=== PATIENT | female | born 1975 | race Caucasian/White ===

== ENCOUNTER 2020-08-10 18:32 | Inpatient (IN) | payer OTHER ==
[~2020-08-10] VITALS: Ht 154.9 cm; Wt 100.9 kg
[~2020-08-10 18:32] MED LIST: GLIP5 PO; INSULANPEN SC; LORA2 PO; METF500 PO
[2020-08-10 19:09] LABS: BASOPHILS PERCENT AUTO 1 % (0-2); EOSINOPHILS ABSOLUTE AUTO 0.11 K/mm3 (0.00-0.68); EOSINOPHILS PERCENT AUTO 1 % (0-6); Hematocrit 42.8 % (33.0-51.0); IMMATURE GRAN ABSOLUTE AUTO 0.03 K/mm3 (0.00-0.10); IMMATURE GRAN PERCENT AUTO 0 % (0-1); LYMPHOCYTES PERCENT AUTO 25 % (21-46); MONOCYTES ABSOLUTE AUTO 0.65 K/mm3 (0.16-1.47); MONOCYTES PERCENT AUTO 5 % (4-13); Mean Corpuscular HGB 25.3 pg (26.0-34.0); Mean Corpuscular HGB Conc 32.7 g/dL (31.5-36.5); Mean Corpuscular Volume 77 fL (80-100); Mean Platelet Volume 9.2 fL (9.1-12.4); NEUTROPHILS ABSOLUTE AUTO 8.19 K/mm3 (1.96-9.15); NEUTROPHILS PERCENT AUTO 68 % (41-73); Platelet Count 308 K/mm3 (150-400); RDW Coefficient Variation 12.9 % (11.7-14.2); RDW Standard Deviation 35.9 fL (35.1-46.3); Red Blood Cell Count 5.54 M/mm3 (3.80-5.20); White Blood Cell Count 12.08 K/mm3 (4.00-11.30)
[2020-08-10 19:27] LABS: Alanine Aminotransfer (ALT/SGP 29 U/L (12-78); Albumin, Blood 3.3 g/dL (3.4-5.0); Albumin/Globulin Ratio 0.8 (0.8-1.8); Alk Phos 111 U/L (50-136); Anion Gap 6 mmol/L (6-16); Aspartate Aminotrans (AST/SGOT 20 U/L (12-37); Bilirubin, Total 0.4 mg/dL (0.1-1.0); Blood Urea Nitrogen 7 mg/dL (8-24); Bun/Creatinine Ratio 14.3 (12.0-20.0); CO2, Blood 26 mmol/L (21-32); Calcium, Blood 8.6 mg/dL (8.5-10.1); Chloride, Blood 103 mmol/L (98-108); Creatinine, Blood 0.49 mg/dL (0.40-1.00); Globulin, Blood 4.2 g/dL (2.2-4.0); Glomerular Filtration Rate >60 (60-); Glucose, Blood 185 mg/dL (70-99); Potassium, Blood 3.7 mmol/L (3.5-5.5); Sodium, Blood 135 mmol/L (136-145); Total Protein, Blood 7.5 g/dL (6.4-8.2)
[2020-08-10] MEDS ORDERED: BASAGLAR K100 UNIT/1 SC (20:46)
[2020-08-10] MEDS ORDERED: FURO20 PO (20:47)
[2020-08-10] MEDS ORDERED: LOSARTAN POTASS50 M1 PO (20:47)
[2020-08-10] MEDS ORDERED: METF500 PO (20:48)
[2020-08-10] MEDS ORDERED: ADD MEDICATION (20:49)
[2020-08-10] MEDS ORDERED: K-TAB ER8 MEQ PO (23:07)
[2020-08-10] MEDS ORDERED: AMPDEX5 PO (23:32)
[2020-08-10] MEDS ORDERED: CLON.1 PO (23:33)
[2020-08-10] MEDS ORDERED: AMOX-CLAV 875-1 EAC5 PO (23:34)
[2020-08-10] MEDS ORDERED: ALBU8HFA2 INH (23:35)
--- NOTE | 2020-08-11 04:14 | NUR ---
SHIFT SUMMARY PT ER ADMIT THIS SHIFT FOR CVA. PT HAS RIGHT VISUAL DEFICIT AND CAN NOT SEE OUT OF HER PERIPHERAL. NO OTHER NEURO DEFICITS NOTED, PT BP HAS BEEN STABLE. 1 PA TO THE BATHOOM. ADMISSION COMPLETE. BED IN LOWEST POSITION, CALL LIGHT WITHIN REACH.
[2020-08-11 06:06] LABS: BASOPHILS ABSOLUTE AUTO 0.08 K/mm3 (0.00-0.23); BASOPHILS PERCENT AUTO 1 % (0-2); EOSINOPHILS ABSOLUTE AUTO 0.04 K/mm3 (0.00-0.68); EOSINOPHILS PERCENT AUTO 0 % (0-6); Hemoglobin 13.7 g/dL (11.5-16.0); IMMATURE GRAN ABSOLUTE AUTO 0.04 K/mm3 (0.00-0.10); IMMATURE GRAN PERCENT AUTO 0 % (0-1); LYMPHOCYTES ABSOLUTE AUTO 2.38 K/mm3 (0.84-5.20); LYMPHOCYTES PERCENT AUTO 19 % (21-46); MONOCYTES ABSOLUTE AUTO 0.49 K/mm3 (0.16-1.47); MONOCYTES PERCENT AUTO 4 % (4-13); Mean Corpuscular HGB 26.1 pg (26.0-34.0); Mean Corpuscular HGB Conc 33.4 g/dL (31.5-36.5); Mean Corpuscular Volume 78 fL (80-100); Mean Platelet Volume 9.2 fL (9.1-12.4); NEUTROPHILS ABSOLUTE AUTO 9.54 K/mm3 (1.96-9.15); NEUTROPHILS PERCENT AUTO 76 % (41-73); Platelet Count 278 K/mm3 (150-400); RDW Standard Deviation 36.4 fL (35.1-46.3); Red Blood Cell Count 5.24 M/mm3 (3.80-5.20); White Blood Cell Count 12.57 K/mm3 (4.00-11.30)
[2020-08-11 06:24] LABS: Alanine Aminotransfer (ALT/SGP 26 U/L (12-78); Albumin, Blood 2.9 g/dL (3.4-5.0); Albumin/Globulin Ratio 0.8 (0.8-1.8); Alk Phos 92 U/L (50-136); Anion Gap 5 mmol/L (6-16); Aspartate Aminotrans (AST/SGOT 17 U/L (12-37); Bilirubin, Total 0.5 mg/dL (0.1-1.0); Blood Urea Nitrogen 5 mg/dL (8-24); Bun/Creatinine Ratio 11.1 (12.0-20.0); CO2, Blood 27 mmol/L (21-32); Calcium, Blood 8.1 mg/dL (8.5-10.1); Chloride, Blood 102 mmol/L (98-108); Creatinine, Blood 0.45 mg/dL (0.40-1.00); Globulin, Blood 3.8 g/dL (2.2-4.0); Glomerular Filtration Rate >60 (60-); Glucose, Blood 220 mg/dL (70-99); Potassium, Blood 3.7 mmol/L (3.5-5.5); Sodium, Blood 134 mmol/L (136-145); Total Protein, Blood 6.7 g/dL (6.4-8.2)
[2020-08-11 14:14] LABS: Source, Urine Clean Catch
[2020-08-11 14:16] LABS: Appearance, Urine Clear (Clear); Bilirubin, Urine Neg (Neg); Blood, Urine Neg (Neg); Color, Urine Yellow (P-Yellow); Glucose Qualitative, Urine 4+ (Neg); Ketones, Urine 2+ (Neg); Leukocyte Esterase, Urine Neg (Neg); Nitrite, Urine Neg (Neg); Protein, Urine Neg (Neg); Specific Gravity, Urine 1.005 (1.003-1.022); Urobilinogen, Urine NORM (Normal)
--- NOTE | 2020-08-11 14:50 | NUR ---
echocardiogram complete
--- NOTE | 2020-08-11 18:23 | NUR ---
SHIFT SUMMARY- PT IS A/O, PLESANT AND COOPERATIVE. HER APPETITIE IS POOR. HER STRENGTH IS EVEN. SHE REPORTS SOME VISIUAL DEFICIETS FROM HER STROKE. SHE REPORTS THAT IT HAS IMPROVED FROM THE ONSET. SHE TOOK A SHOWER THIS SHIFT. HER SISTER VISITED THIS AFTERNOON. HER BED IS IN THE LOW POSTITION AND CALL LIGHT IS WITHIN REACH.
[2020-08-12 04:34] LABS: Hematocrit 40.4 % (33.0-51.0); Hemoglobin 13.3 g/dL (11.5-16.0); Mean Corpuscular HGB Conc 32.9 g/dL (31.5-36.5); Mean Corpuscular Volume 79 fL (80-100); Mean Platelet Volume 9.4 fL (9.1-12.4); Platelet Count 258 K/mm3 (150-400); RDW Standard Deviation 37.1 fL (35.1-46.3); Red Blood Cell Count 5.12 M/mm3 (3.80-5.20)
[2020-08-12 04:55] LABS: Albumin, Blood 2.8 g/dL (3.4-5.0); Anion Gap 5 mmol/L (6-16); Blood Urea Nitrogen 7 mg/dL (8-24); Bun/Creatinine Ratio 12.1 (12.0-20.0); CO2, Blood 27 mmol/L (21-32); Calcium, Blood 8.2 mg/dL (8.5-10.1); Chloride, Blood 107 mmol/L (98-108); Cholesterol 140 mg/dL (50-200); Creatinine, Blood 0.58 mg/dL (0.40-1.00); Glomerular Filtration Rate >60 (60-); Glucose, Blood 145 mg/dL (70-99); HDL Cholesterol 47 mg/dL (>39); LDL/HDL RATIO 1.3; Low Density Lipoprotein Chol 63 mg/dL (0-110); Phosphorus, Blood 2.5 mg/dL (2.5-4.9); Potassium, Blood 3.6 mmol/L (3.5-5.5); Sodium, Blood 139 mmol/L (136-145); Triglycerides 152 mg/dL (30-160); Very Low Density Lipoprot Chol 30 mg/dL (6-32)
--- NOTE | 2020-08-12 05:29 | NUR ---
SUMMARY: A/OX4, INDEPENDENT IN ROOM AND CALLS APPROPRIATELY TO SPECIFY NEEDS. NO DEFICITS OBSERVED OTHER THAN BLURRY VISION AND DECREASED R.PERIPHERAL VISION. PT C/O MILD INTERMITTENT ARMENDARIZ W/TYLENOL RECIEVED PRN FOR ADEQUATE RELIEF. SHE REMAINS NSR AT 80'S BPM ON TELEMETRY. FASTING CORONARY RISK PANEL WNL. NO ACUTE CHANGES, VSS/AFEBRILE. WCTM AND REPORT TO DAY RN.
[2020-08-12 13:57] LABS: SARS-Cov-2 (COVID-19) PCR, MMC NEGATIVE (NEGATIVE)
--- NOTE | 2020-08-12 14:35 | NUR ---
mom in to visit prior to procedure, negative covid test, left with procedure nurse
--- NOTE | 2020-08-12 15:42 | NUR ---
REPORT PT TRANSFERED BY WHEELCHAIR BY THIS NURSE TO [facility]LO[facility]. SBAR GIVEN TO JUSTIN AVALOS. PT A&OX3 AND DENIED ANY PAIN AT THIS TIME. VSS
[2020-08-12] MEDS ORDERED: ASPI81CH PO (17:46)
[2020-08-12] MEDS ORDERED: CLOP75 PO (17:47)
[2020-08-12] MEDS ORDERED: MIRALAX17 GM PO (17:50)
[2020-08-12] MEDS ORDERED: Zocor20 MG PO (17:51)
[2020-08-12] MEDS ORDERED: HUMALOG KW100 UNIT/1 SC (17:54)
== END 2020-08-12 18:28 | disposition home or self-care (01) | DRG 65 ==
LOC: ER 18:32 → ERHOLD 18:34 → MEDS 18:34 → ERHOLD 20:26 → ER 20:26 → ERHOLD 20:26 → MEDS 22:13
PROVIDERS: Internal Medicine; Physician Assistant; ADMIT Internal Medicine
PROC: B24BZZ4 Ultrasonography of Heart with Aorta, Transesophageal (ICD-10-PCS; principal; 2020-08-12)
DX: I63.9 Cerebral infarction, unspecified (principal); Z68.41 Body mass index [BMI] 40.0-44.9, adult; Z20.822 Contact with and (suspected) exposure to COVID-19; J45.909 Unspecified asthma, uncomplicated; I10 Essential (primary) hypertension; F90.9 Attention-deficit hyperactivity disorder, unspecified type; J32.9 Chronic sinusitis, unspecified; H54.7 Unspecified visual loss; E11.65 Type 2 diabetes mellitus with hyperglycemia; K02.9 Dental caries, unspecified; E66.9 Obesity, unspecified; Z79.84 Long term (current) use of oral hypoglycemic drugs; Z79.899 Other long term (current) drug therapy
CPT/HCPCS: 36415; 70450; 70496; 70498; 80053; 80061; 80069; 81003; 82947; 83036; 85025; 85027; 93306; 93312; 93325; 94760; 96372; 97161; 97165; 97535; 99285-25; A9270; G0378; J1650; J7030; Q9967; U0004

== ENCOUNTER → 2024-12-18 | Outpatient (CLI) | payer OTHER ==
[~2024-12-18] MED LIST changes: +ADD MEDICATION; +ALBU8HFA2 INH; +AMOX-CLAV 875-1 EAC5 PO; +AMPDEX5 PO; +ASPI81CH PO; +BASAGLAR K100 UNIT/1 SC; +CLON.1 PO; +CLOP75 PO; +FURO20 PO; +HUMALOG KW100 UNIT/1 SC; +K-TAB ER8 MEQ PO; +LOSARTAN POTASS50 M1 PO; +MIRALAX17 GM PO; +Zocor20 MG PO
== END ==
LOC: LAB SHORT 13:44 → LAB 13:44
DX: N88.9 Noninflammatory disorder of cervix uteri, unspecified (principal)
CPT/HCPCS: 88305

== ENCOUNTER → 2024-12-18 | Outpatient (CLI) | payer OTHER ==
[2024-12-18 14:26] LABS: Bacterial Vaginosis PCR Negative (NEGATIVE); Candida Group, PCR NOT DETECTED (NOT DETECT); Candida glabrata-krusei, PCR DETECTED (NOT DETECT)
== END ==
LOC: LAB SHORT 10:13 → LAB 10:13
PROVIDERS: Obstetrics & Gynecology
DX: N89.8 Other specified noninflammatory disorders of vagina (principal)
CPT/HCPCS: 81515